=== PATIENT | female | born 1985 | race Caucasian/White ===

== ENCOUNTER 2019-01-10 10:07 | Observation (INO) | payer OTHER ==
[~2019-01-10 10:07] MED LIST: Lactated Ringers 1,000 ML IV ONE; TYLENOL 325 MG ONE
[2019-01-10] MEDS ORDERED: TYLENOL 325 MG PO PRN (10:59)
[2019-01-10] MEDS ORDERED: Phenergan 25 MG INJ IV PRN (11:00)
[2019-01-10] MEDS ORDERED: Sodium Chloride 0.9% 1000 ML 1,000 ML IV SCH (11:00)
[2019-01-10] MEDS: Lactated Ringers 1,000 ML IV SCH ×2 (11:14→21:45)
[2019-01-10 11:19] LABS: Basophil (Absolute #) 0 (0-0.4); Eosinophil % 7.1 % (0.00-5.0); Eosinophil (Absolute #) 0.32 (0-0.5); Granulocyte Absolute (ANC) 2.53 (1.4-6.9); Granulocytes % 56.2 % (36.0-66.0); Hematocrit 35.9 % (35-47); Hemoglobin 12.2 gm/dl (12.0-16.0); Lymphocyte (Absolute #) 1.24 (1.0-4.6); Lymphocytes % 27.6 % (24.0-44.0); Mean Cell Volume 91.3 fl (78-100); Mean Platelet Volume 9.6 fl (6-9.5); Monocyte (Absolute #) 0.41 (0.0-1.3); Monocytes % 9.1 % (0.0-12.0); Platelet Count 219 K/mm3 (150-450); Red Blood Count 3.93 M/mm3 (4.1-5.4); Red Cell Distribution Width 11.9 % (11.5-14.0); White Blood Count 4.5 K/mm3 (4.0-10.5)
[2019-01-10 11:53] LABS: Appearance CLEAR (CLEAR); Bilirubin NEGATIVE (NEGATIVE); Blood SMALL Ery/ul (0-5); Epithelial Cells RARE /HPF (FEW); Glucose NEGATIVE (NEGATIVE); Ketones NEGATIVE (NEGATIVE); Leukocyte Esterase NEGATIVE (NEGATIVE); Mucus SLIGHT /HPF (NEGATIVE); Nitrite NEGATIVE (NEGATIVE); Protein,Urine Dip NEGATIVE (Negative); Specific Gravity 1.006 (1.005-1.025); Urobilinogen NEGATIVE mg/dL (0-1); WBC 0-2 /HPF (0-5)
[2019-01-10 11:58] LABS: ALBUMIN 3.6 g/dL (3.5-5.0); ALKALINE PHOSPHATASE 59 U/L (38-126); ANION GAP 13.5 MEQ/L (5-15); BLOOD UREA NITROGEN 8 mg/dL (7-17); CHLORIDE 104 mmol/L (98-107); Calcium 8.6 mg/dL (8.4-10.2); Carbon Dioxide 26 mmol/L (22-30); Creatinine 1 0.91 mg/dL (0.52-1.04); Glucose 89 mg/dL (74-106); Potassium 4.1 mmol/L (3.5-5.1); SGOT/AST 22 U/L (14-36); SGPT/ALT 37 U/L (0-35); SODIUM 139 mmol/L (137-145)
[2019-01-10] MEDS ORDERED: Levofloxacin 500MG/100ML D5W 500 MG/100 ML BAG IV SCH (12:00)
--- NOTE | 2019-01-10 12:20 | XRAY ---
Indication: Flank pain. UTI. Two-dimensional renal sonogram performed. Comparison: None Both kidneys normal in reniform shape with normal color perfusion. Right kidney measures 11.0 x 3.8 x 4.5 cm and the left measures 11.3 x 5.4 x 5.3 cm. No solid/cystic renal mass or hydronephrosis. Corticomedullary differentiation preserved without cortical thinning. Impression: Negative renal sonogram.
[2019-01-10] MEDS: NORCO 5/325 MG PO PRN (21:53)
[2019-01-11 04:28] VITALS: O2SAT 98
[2019-01-11] MEDS: Lactated Ringers 1,000 ML IV SCH (05:39)
--- NOTE | 2019-01-11 07:17 | PCM.HP.ADD ---
Addendum to History & Physical - History & Physical Addendum Addendum to History & Physical: This certifies that the History & Physical in the electronic chart reflects the current health status of the patient. If there are changes in the H&P these changes/exceptions are listed as follows.
[2019-01-11 07:23] VITALS: BP 124/81; PULSE 78
--- NOTE | 2019-01-11 07:50 | PCM.DS ---
Discharge Summary Date of Admission: 01/10/19 10:56 Admitting Physician: KAYLAN GAITAN Primary Care Provider: KAYLAN GAITAN Allergies Allergies sulfamethoxazole [From Bactrim] Allergy (Verified 01/10/19 11:07) trimethoprim [From Bactrim] Allergy (Verified 01/10/19 11:07) Hospital Summary - Hospital Course Hospital Course: Pt is 33 yo female pt of mine from [facility] with PMHx pyelonephritis who was admitted from office with UTI. She started having urinary sx on a Wednesday and submitted a urine which was not seen by me until the next week. Culture was not done/not ordered in error. She was then give 1 dose IM rocephin and started on keflex. She started running a fever and was changed to bactrim. She then had a reaction to bactrim and stopped it. When she saw me in office yesterday, she was having bilat flank pain, nausea and fevers at home. After admission she received IV fluids and IV levaquin. She did tolerate po yesterday. Afebrile all night. She is having some intermittent R flank pain and intermittent nausea now. Had to turn fluids down because she is "puffy" all over this morning. Urinating very well. Will discharge to home after today's dose of levaquin on levaquin po to finish 7d (5 more d). Pt to call if any fever, increase in nausea or flank pain, or other worrisome sx. - Vitals & Intake/Output Vital Signs: Vital Signs Temperature 98 F 01/11/19 07:22 Pulse Rate 78 01/11/19 07:22 Respiratory Rate 20 01/11/19 07:22 Blood Pressure 124/81 01/11/19 07:22 O2 Sat by Pulse Oximetry 98 01/11/19 07:22 Intake & Output: Intake & Output 01/08/19 01/09/19 01/10/19 01/11/19 11:59 11:59 11:59 11:59 Intake Total 4676 Output Total 4100 Balance 576 Weight 98.5 kg - Lab Result Diagrams: 01/10/19 11:16 01/10/19 11:16 Lab Results-Last 24 Hrs: Lab Results-Last 24 Hours 04/30/19 04/30/19 04/30/19 Range/Units 11:06 11:16 11:16 WBC 4.5 (4.0-10.5) K/mm3 RBC 3.93 L (4.1-5.4) M/mm3 Hgb 12.2 (12.0-16.0) gm/dl Hct 35.9 (35-47) % MCV 91.3 (78-100) fl MCH 31.0 (26-32) pg MCHC 34.0 (32-36) g/dl RDW 11.9 (11.5-14.0) % Plt Count 219 (150-450) K/mm3 MPV 9.6 H (6-9.5) fl Gran % 56.2 (36.0-66.0) % Eos # (Auto) 0.32 (0-0.5) Absolute Lymphs (auto) 1.24 (1.0-4.6) Absolute Monos (auto) 0.41 (0.0-1.3) Lymphocytes % 27.6 (24.0-44.0) % Monocytes % 9.1 (0.0-12.0) % Eosinophils % 7.1 H (0.00-5.0) % Basophils % 0.0 (0.0-0.4) % Absolute Granulocytes 2.53 (1.4-6.9) Basophils # 0 (0-0.4) Sodium 139 (137-145) mmol/L Potassium 4.1 (3.5-5.1) mmol/L Chloride 104 (98-107) mmol/L Carbon Dioxide 26 (22-30) mmol/L Anion Gap 13.5 (5-15) MEQ/L BUN 8 (7-17) mg/dL Creatinine 0.91 (0.52-1.04) mg/dL Estimated GFR > 60.0 ML/MIN Glucose 89 (74-106) mg/dL Calcium 8.6 (8.4-10.2) mg/dL Total Bilirubin 0.50 (0.2-1.3) mg/dL AST 22 (14-36) U/L ALT 37 H (0-35) U/L Alkaline Phosphatase 59 (38-126) U/L NT-Pro-B Natriuret Pep (0-450) pg/mL Serum Total Protein 7.0 (6.3-8.2) g/dL Albumin 3.6 (3.5-5.0) g/dL Urine Color YELLOW (YELLOW) Urine Appearance CLEAR (CLEAR) Urine pH 6.0 (5-6) Ur Specific Wells 1.006 (1.005-1.025) Urine Protein NEGATIVE (Negative) Urine Ketones NEGATIVE (NEGATIVE) Urine Blood SMALL (0-5) Cory/ul Urine Nitrite NEGATIVE (NEGATIVE) Urine Bilirubin NEGATIVE (NEGATIVE) Urine Urobilinogen NEGATIVE (0-1) mg/dL Ur Leukocyte Esterase NEGATIVE (NEGATIVE) Urine WBC (Auto) 0-2 (0-5) /HPF Urine RBC (Auto) NONE (0-2) /HPF U Epithel Cells (Auto) RARE (FEW) /HPF Urine Bacteria (Auto) NONE (NEGATIVE) /HPF Urine Mucus (Auto) SLIGHT (NEGATIVE) /HPF Urine Glucose NEGATIVE (NEGATIVE) mg/dL 01/11/19 Range/Units 05:10 WBC (4.0-10.5) K/mm3 RBC (4.1-5.4) M/mm3 Hgb (12.0-16.0) gm/dl Hct (35-47) % MCV (78-100) fl MCH (26-32) pg MCHC (32-36) g/dl RDW (11.5-14.0) % Plt Count (150-450) K/mm3 MPV (6-9.5) fl Gran % (36.0-66.0) % Eos # (Auto) (0-0.5) Absolute Lymphs (auto) (1.0-4.6) Absolute Monos (auto) (0.0-1.3) Lymphocytes % (24.0-44.0) % Monocytes % (0.0-12.0) % Eosinophils % (0.00-5.0) % Basophils % (0.0-0.4) % Absolute Granulocytes (1.4-6.9) Basophils # (0-0.4) Sodium (137-145) mmol/L Potassium (3.5-5.1) mmol/L Chloride (98-107) mmol/L Carbon Dioxide (22-30) mmol/L Anion Gap (5-15) MEQ/L BUN (7-17) mg/dL Creatinine (0.52-1.04) mg/dL Estimated GFR ML/MIN Glucose (74-106) mg/dL Calcium (8.4-10.2) mg/dL Total Bilirubin (0.2-1.3) mg/dL AST (14-36) U/L ALT (0-35) U/L Alkaline Phosphatase (38-126) U/L NT-Pro-B Natriuret Pep 82.0 (0-450) pg/mL Serum Total Protein (6.3-8.2) g/dL Albumin (3.5-5.0) g/dL Urine Color (YELLOW) Urine Appearance (CLEAR) Urine pH (5-6) Ur Specific Wells (1.005-1.025) Urine Protein (Negative) Urine Ketones (NEGATIVE) Urine Blood (0-5) Cory/ul Urine Nitrite (NEGATIVE) Urine Bilirubin (NEGATIVE) Urine Urobilinogen (0-1) mg/dL Ur Leukocyte Esterase (NEGATIVE) Urine WBC (Auto) (0-5) /HPF Urine RBC (Auto) (0-2) /HPF U Epithel Cells (Auto) (FEW) /HPF Urine Bacteria (Auto) (NEGATIVE) /HPF Urine Mucus (Auto) (NEGATIVE) /HPF Urine Glucose (NEGATIVE) mg/dL - Radiology Exams Ordered Rad Exams-Entire Visit: Radiology Procedures Category Date Time Status KIDNEY [US] Routine Exams 01/10/19 11:59 Completed Discharge Exam General Appearance: no apparent distress, alert Neurologic Exam: oriented x 3, cooperative Skin Exam: normal color, warm, dry, No rash Eye Exam: eyes nml inspection Ears, Nose, Throat Exam: moist mucous membranes Neck Exam: normal inspection Respiratory Exam: normal breath sounds, lungs clear, No crackles/rales, No rhonchi, No wheezing Cardiovascular Exam: regular rate/rhythm, normal heart sounds, No murmur Gastrointestinal/Abdomen Exam: soft, normal bowel sounds, No tenderness, No distention, No mass, No guarding Extremity Exam: pedal edema (1+) Back Exam: CVA tenderness (mild on R, none on L) Final Diagnosis/Problem List - Final Discharge Diagnosis/Problem (1) UTI (urinary tract infection) Current Visit: Yes Status: Acute Assessment & Plan: On Levaquin with improvement. I did order a culture but do not think anything will show as she was on abx when it was done. Home today on po levaquin; start tomorrow and take x 5 more d. Code(s): N39.0 - URINARY TRACT INFECTION, SITE NOT SPECIFIED - Discharge Disposition: Home, Self-Care Condition: Good Prescriptions: New Levofloxacin [Levaquin] 500 mg PO DAILY #5 tablet Promethazine HCl 12.5 mg PO Q6H PRN #10 tablet PRN Reason: Nausea Follow up with: KAYLAN GAITAN [Primary Care Provider] - 1 Week
[2019-01-11] MEDS: NORCO 5/325 MG PO PRN (08:00)
[2019-01-11] MEDS ORDERED: Levofloxacin 500MG/100ML D5W 500 MG/100 ML BAG IV SCH (10:00)
== END 2019-01-11 10:35 | disposition home or self-care (01) ==
LOC: MED SURG 10:56
PROVIDERS: ADMIT Family Medicine; ATTEND Family Medicine
DX: N39.0 Urinary tract infection, site not specified (principal); R10.9 Unspecified abdominal pain
CPT/HCPCS: 36415; 76770; 80053; 81001; 83880; 85025; 87086; G0378; J1956; J2550; A9270-GY